=== PATIENT | male | born 1985 | race African-American/Black ===

== ENCOUNTER 2016-11-08 14:20 | Emergency (ER) | payer SELFPAY ==
[2016-11-08] MEDS ORDERED: KETOROLAC TROMETHAMINE 60 MG/2 ML SDV IM ONE (15:45)
[2016-11-08] MEDS ORDERED: DEXAMETHASONE SOD PHOS INJ 10 MG/1 ML VIAL IM ONE (15:45)
--- NOTE | 2016-11-08 15:46 | ER Document Report ---
ED General - General Chief Complaint: Dizziness Stated Complaint: SORE THROAT,DIZZY,WEAK Mode of Arrival: Ambulatory Information source: Patient Notes: 31-year-old male presents with complaints of sore throat fever bodyaches since yesterday. Patient is unsure sick contacts TRAVEL OUTSIDE OF THE [place] IN LAST 30 DAYS: No - HPI Onset: Yesterday Onset/Duration: Persistent Quality of pain: Achy Severity: Mild Pain Level: 1 Associated symptoms: Body/muscle aches, Fever, Sore throat Exacerbated by: Other - Swallowing Relieved by: Denies Similar symptoms previously: No Recently seen / treated by doctor: No - Related Data Allergies/Adverse Reactions: tramadol HCl [From Ultram] Adverse Reaction (Intermediate, Verified 11/08/16 14: 25) VOMITING duloxetine HCl [From Cymbalta] Adverse Reaction (Verified 11/08/16 14:25) Past Medical History - Social History Smoking Status: Never Smoker Cigarette use (# per day): No Chew tobacco use (# tins/day): No Smoking Education Provided: No Family History: Reviewed & Not Pertinent Patient has suicidal ideation: No Patient has homicidal ideation: No - Past Medical History Cardiac Medical History: Denies: Hx Coronary Artery Disease, Hx Heart Attack, Hx Hypertension, Hx Pulmonary Embolism Endocrine Medical History: Denies: Hx Diabetes Mellitus Type 1, Hx Diabetes Mellitus Type 2 Renal/ Medical History: Denies: Hx Peritoneal Dialysis - Immunizations Hx Diphtheria, Pertussis, Tetanus Vaccination: Yes Review of Systems - Review of Systems Notes: REVIEW OF SYSTEMS: CONSTITUTIONAL : Denies fever, chills, or sweats. Denies recent illness. EENT: Admits to sore throat CARDIOVASCULAR: Denies chest pain. Denies palpitations or racing or irregular heart beat. Denies ankle edema. RESPIRATORY: Denies cough, cold, or chest congestion. Denies shortness of breath, difficulty breathing, or wheezing. GASTROINTESTINAL: Denies abdominal pain or distention. Denies nausea, vomiting , or diarrhea. Denies blood in vomitus, stools, or per rectum. Denies black, tarry stools. Denies constipation. GENITOURINARY: Denies difficulty urinating, painful urination, burning, frequency, blood in urine, or discharge. MUSCULOSKELETAL: Denies back or neck pain or stiffness. Denies joint pain or swelling. SKIN: Denies rash, lesions or sores. HEMATOLOGIC : Denies easy bruising or bleeding. LYMPHATIC: Denies swollen, enlarged glands. NEUROLOGICAL: Denies confusion or altered mental status. Denies passing out or loss of consciousness. Denies dizziness or lightheadedness. Denies headache. Denies weakness or paralysis or loss of use of either side. Denies problems with gait or speech. Denies sensory loss, numbness, or tingling. Denies seizures. PSYCHIATRIC: Denies anxiety or stress. Denies depression, suicidal ideation, or homicidal ideation. ALL OTHER SYSTEMS REVIEWED AND NEGATIVE. Dictation was performed using [employer] recognition software PHYSICAL EXAMINATION: GENERAL: Well-appearing, well-nourished and in no acute distress. HEAD: Atraumatic, normocephalic. EYES: Pupils equal round and reactive to light, extraocular movements intact, sclera anicteric, conjunctiva are normal. ENT: Airways patent uvula is edematous but noted midline, tonsils are not enlarged. NECK: Normal range of motion, supple without lymphadenopathy LUNGS: Breath sounds clear to auscultation bilaterally and equal. No wheezes rales or rhonchi. HEART: Regular rate and rhythm without murmurs ABDOMEN: Soft, nontender, nondistended abdomen. No guarding, no rebound. No masses appreciated. Musculoskeletal: Normal range of motion, no pitting or edema. No cyanosis. NEUROLOGICAL: Cranial nerves grossly intact. Normal speech, normal gait. Normal sensory, motor exams PSYCH: Normal mood, normal affect. SKIN: Warm, Dry, normal turgor, no rashes or lesions noted. Physical Exam - Vital signs Vitals: Temp Pulse Resp BP Pulse Ox 98.9 F 100 21 H 153/109 H 91 L 11/08/16 14:26 11/08/16 14:26 11/08/16 14:26 11/08/16 14:26 11/08/16 14:26 Course - Re-evaluation Re-evalutation: 11/08/16 16:23 Patient has obvious uvulitis, he was given a dose of Decadron does not wish to have any other steroids. I will treat him with antibiotics for streptococcal coverage Otherwise patient is stable for discharge After performing a Medical Screening Examination, I estimate there is LOW risk for ACUTE CORONARY SYNDROME, RESPIRATORY FAILURE, SEPSIS OR MENINGITIS, thus I consider the discharge disposition reasonable. I have reevaluated this patient multiple times and no significant life threatening changes are noted. The patient and I have discussed the diagnosis and risks, and we agree with discharging home with close follow-up. We also discussed returning to the Emergency Department immediately if new or worsening symptoms occur. We have discussed the symptoms which are most concerning (e.g., changing or worsening pain, trouble swallowing or breathing, neck stiffness, fever) that necessitate immediate return. - Vital Signs Vital signs: Temp Pulse Resp BP Pulse Ox 98.9 F 100 21 H 153/109 H 97 11/08/16 14:26 11/08/16 14:26 11/08/16 14:26 11/08/16 14:26 11/08/16 16:04 Discharge - Discharge Clinical Impression: Uvulitis Condition: Stable Disposition: HOME, SELF-CARE Additional Instructions: Please contact the following office for an appointment tomorrow or returm immediately if there are any other concerns [facility] Address: [address] [place] [id number] Prescriptions: Amoxicillin 875 mg PO BID #20 tablet
[2016-11-08 16:32] VITALS: BP 145/90
== END 2016-11-08 16:30 | disposition home or self-care (01) ==
LOC: ER 14:20
DX: K12.2 Cellulitis and abscess of mouth (principal); R42 Dizziness and giddiness; J02.9 Acute pharyngitis, unspecified; R53.1 Weakness; R50.9 Fever, unspecified; R52 Pain, unspecified
CPT/HCPCS: 99284; 96372; 87070; 87880; J1885; J1100